=== PATIENT | female | born 1990 | race Caucasian/White ===

== ENCOUNTER 2022-07-11 20:41 | Emergency (ER) | payer OTHER, SELFPAY ==
[2022-07-11 21:44] VITALS: BP 145/70; PULSE 67; RESP 18; TEMP 36.7; O2SAT 100
[2022-07-11 22:26] VITALS: BMI 18.6
--- NOTE | 2022-07-11 22:28 | XRR_ITS ---
PROCEDURE INFORMATION: Exam: XR Right Foot Exam date and time: 07/11/2022 11:06 PM Age: 31 years old Clinical indication: Injury or trauma; Fall; Blunt trauma; Foot; Right; Additional info: Right foot injury TECHNIQUE: Imaging protocol: Radiologic exam of the right foot. Views: 3 or more views. COMPARISON: No relevant prior studies available. FINDINGS: Bones/joints: Fifth metatarsal mid to distal diaphyseal oblique mildly displaced fracture. Soft tissues: Normal. XR/XR foot RT min 3V* [id number] IMPRESSION: Fifth metatarsal mid to distal diaphyseal oblique mildly displaced fracture.
--- NOTE | 2022-07-11 23:30 | W.ED.EXTPRO ---
HPI - Extremity Problem General: Chief complaint: Extremity Injury, Lower Stated complaint: right foot injury Time Seen by Provider: 07/11/22 22:34 History of Present Illness: Patient is a 31-year-old female comes to the ED with right foot injury. Injury occurred a couple hours prior to arrival. Patient says she stepped off front porch ledge and landed on right foot weird. She now has pain bruising and swelling to the lateral aspect of right foot. Denies any other injuries, head trauma or loss of consciousness. Associated symptoms: Deny chest pain, fever(s) or rash Review of Systems Const: Denies: fever(s), chills or fatigue Eyes: Denies: change in vision or eye discomfort ENMT: Denies: throat pain, odynophagia, nasal discharge or nasal congestion Card: Denies: chest pain, palpitations, edema, swelling of feet/ankles, dyspnea on exertion or orthopnea Resp: Denies: dyspnea, productive cough or non-productive cough GI: Denies: abdominal pain, nausea, vomiting, diarrhea, constipation or hematochezia : Denies: flank pain, dysuria or hematuria Musc: Reports: extremity pain (Right foot) and extremity swelling (Right foot); Denies: neck pain or back pain Skin/Breast: Denies: rash or new lesions Neuro: Denies: headache(s), numbness in extremities or weakness in extremities PFS ED PFSH: Medical History (Updated 07/12/22 @ 02:11 by MARY Tripathi) No pertinent family history Surgical History (Updated 07/12/22 @ 02:11 by MARY Tripathi) No pertinent past surgical history Physical Exam Const: COMMON NORMALS: patient oriented x3, healthy appearing and alert HENMT: COMMON NORMALS: normocephalic HEAD & SCALP: normocephalic MOUTH: Normal oral and palatal mucosa present THROAT: posterior oropharynx normal and uvula midline Neck/C-Spine: COMMON NORMALS: supple GENERAL: Yes normal visual inspection Resp: COMMON NORMALS: normal respiratory effort, No retractions, No use of accessory muscles and clear to auscultation bilaterally AUSCULTATION: clear to auscultation bilaterally Cardio: COMMON NORMALS: regular rate, regular rhythm, S1 normal heart sound present, S2 normal heart sound present, No gallops present (Cardio), No clicks present (Cardio), No murmurs present (Cardio) and Peripheral pulses 2+ throughout RATE: regular rate RHYTHM: regular rhythm HEART SOUNDS: S1 normal heart sound present and S2 normal heart sound present PERIPHERAL PULSES: Peripheral pulses 2+ throughout GI: COMMON NORMALS: Normal to inspection, nondistended, normoactive bowel sounds present, Soft to palpation, non-tender and no masses PALPATION: Yes Soft to palpation : COMMON NORMALS: Yes no CVA tenderness BLADDER/KIDNEY EXAM: Yes no CVA tenderness Back/Pelvis: COMMON NORMALS: no CVA tenderness Extremity: NARRATIVE EXTREMITY EXAM: Right foot?ecchymosis, swelling and tenderness around fifth metatarsal. No nailbed or nail damage noted. No visible deformities. Neuro: COMMON NORMALS: patient oriented x3 SENSORIUM/ORIENTATION: Yes alert GAIT: Yes Normal gait present Skin: GENERAL SKIN EXAM: dry skin Course Vital Signs: Vital signs: Vital Signs Temperature 98.0 F 07/11/22 21:44 Pulse Rate 67 07/11/22 21:44 Respiratory Rate 18 07/11/22 21:44 Blood Pressure 145/70 07/11/22 21:44 Pulse Oximetry 100 07/11/22 21:44 Oxygen Delivery Me thod Room Air 07/11/22 21:44 MDM - Extremity (Nontraumatic) Medical Decision Making Patient is a 31-year-old female comes to the ED with right foot injury. Injury occurred a couple hours prior to arrival. Patient says she stepped off front porch ledge and landed on right foot weird. She now has pain bruising and swelling to the lateral aspect of right foot. Right foot?ecchymosis, swelling and tenderness around fifth metatarsal. No nailbed or nail damage noted. No visible deformities. X-ray of right foot showed fifth metatarsal mid to distal oblique mildly displaced fracture. I placed order with case management for patient be referred to podiatry for follow-up. She is given a dose of hydrocodone here in the ED to help with pain. Patient was put in a posterior leg splint and given crutches. She was sent home with a prescription for hydrocodone for pain and told to follow-up with podiatry at her future scheduled appointment. Return to ED precautions given. Patient understood agree with plan. Lab Data Radiology Impressions Foot X-Ray 07/11/22 22:28 IMPRESSION: Fifth metatarsal mid to distal diaphyseal oblique mildly displaced fracture. Discharge Plan Discharge Patient Disposition: Home Clinical Impression: Fracture of 5th metatarsal Qualifiers: Encounter type: initial encounter Fracture type: closed Fracture alignment: nondisplaced Laterality: right Qualified Code(s): S92.354A - Nondisplaced fracture of fifth metatarsal bone, right foot, initial encounter for closed fracture Condition: Stable Discharge Orders: Discharge ED (Routine); Ordered 07/11/22 Ordered By: Matt Solis Discharge Diet: Regular Discharge Activity: Limit activity as instructed and Use walker/crutches as instructed Patient Instructions: Fractures - Metatarsal Activity Restrictions/Additional Instructions: Follow-up with medical provider as directed. Case management should be contacted in the next several days to set up an appointment with communications manager for follow-up on fracture. Keep splint on and dry and no weightbearing until cleared by communications manager. Use crutches to help with ambulation. Take medications as prescribed. Return to the ER or your medical provider if condition worsens. Please read and understand discharge instructions. Thank you for choosing [facility] for your healthcare needs today. Please realize this is an emergency room and that we are providing you with a medical screening exam and this may not be complete and all inclusive of all the testing and or work up that you may need to determine your ailment or severity of your illness. It is very important that you follow up as instructed or that you return to the Emergency Department should you have concerns or if your condition changes or worsens in any way. Coding Level of Care Code ED Fabrication Specialist for Manav Ruiz
[2022-07-11] MEDS: HYDROcodone-acetaminophen 7.5-325 mg Tablet 1 TAB PO (23:40)
--- NOTE | 2022-07-13 08:58 | DCPLANNER ---
Addendum entered by Marianne Cartwright 07/14/22 11:28: Patient had a follow up appointment scheduled with Dr. Art at [facility] - patient did attend appointment. Original Note: reconciliation manager had message to schedule a follow up appointment for patient with podiatry. reconciliation manager sent patients information to the front office staff at podiatry. Patients information will be printed and reviewed. Clinic will call patient with appointment information.
--- NOTE | 2022-07-16 11:23 | DCPLANNER ---
TCM called patient due to no primary care physician - no answer at this time
== END 2022-07-12 00:11 | disposition home or self-care (01) ==
PROVIDERS: Emergency Provider Physician Assistant
DX: S92.354A Nondisplaced fracture of fifth metatarsal bone, right foot, initial encounter for closed fracture (principal); W17.89XA Other fall from one level to another, initial encounter
CPT/HCPCS: 29515; 73630; 99283; E0114

== ENCOUNTER 2022-07-13 16:25 | Outpatient (CLI) | payer OTHER, SELFPAY | END 2022-07-13 16:26 | disposition home or self-care (01) | LOC: SPT 16:25 | PROVIDERS: Visit Provider Podiatrist Foot & Ankle Surgery | DX: Z46.89 Encounter for fitting and adjustment of other specified devices (principal); S92.351D Displaced fracture of fifth metatarsal bone, right foot, subsequent encounter for fracture with routine healing; X58.XXXD Exposure to other specified factors, subsequent encounter | CPT/HCPCS: 97760; L4361 ==

== ENCOUNTER → 2022-07-27 15:36 | Outpatient (BNVA) | payer OTHER, SELFPAY | PROVIDERS: Visit Provider Podiatrist Foot & Ankle Surgery | DX: S92.351A Displaced fracture of fifth metatarsal bone, right foot, initial encounter for closed fracture (principal); X58.XXXA Exposure to other specified factors, initial encounter | CPT/HCPCS: 73630 ==

== ENCOUNTER → 2022-08-18 15:43 | Outpatient (BNVA) | payer OTHER, SELFPAY | PROVIDERS: Visit Provider Podiatrist Foot & Ankle Surgery | DX: S92.351A Displaced fracture of fifth metatarsal bone, right foot, initial encounter for closed fracture (principal); X58.XXXA Exposure to other specified factors, initial encounter | CPT/HCPCS: 73630; 99214 ==

== ENCOUNTER → 2022-08-31 13:13 | Outpatient (BNVA) | payer OTHER, MEDICAID, SELFPAY | PROVIDERS: Visit Provider Podiatrist Foot & Ankle Surgery | DX: S92.351G Displaced fracture of fifth metatarsal bone, right foot, subsequent encounter for fracture with delayed healing (principal); X58.XXXD Exposure to other specified factors, subsequent encounter | CPT/HCPCS: 73630; 99214 ==

== ENCOUNTER → 2022-09-17 15:37 | Outpatient (BNVA) | payer OTHER, MEDICAID, SELFPAY | PROVIDERS: Visit Provider Podiatrist Foot & Ankle Surgery | DX: S92.351A Displaced fracture of fifth metatarsal bone, right foot, initial encounter for closed fracture (principal); X50.9XXA Other and unspecified overexertion or strenuous movements or postures, initial encounter | CPT/HCPCS: 73630; 99214 ==

== ENCOUNTER → 2022-11-03 14:06 | Outpatient (BNVA) | payer MEDICAID, SELFPAY | PROVIDERS: Visit Provider Podiatrist Foot & Ankle Surgery | DX: S92.351A Displaced fracture of fifth metatarsal bone, right foot, initial encounter for closed fracture (principal); W17.89XA Other fall from one level to another, initial encounter | CPT/HCPCS: 73630; 99214 ==

== ENCOUNTER 2022-11-13 06:57 | Day surgery (SDC) | payer MEDICAID, SELFPAY ==
[2022-11-12 11:05] VITALS: BMI 18.8
--- NOTE | 2022-11-13 | XR_ITS ---
WS: [id number] Right foot, C-arm fluoroscopy views, 11/13/2022 Clinical Data: right fifth metatarsal surgery Comparison: Right foot, 11/03/2022 Findings: Dr. Art the blood a plate to the lateral aspect of the midportion of the right fifth metatarsal t o reduce the fracture Impression: Internal fixation of right fifth metatarsal fracture.
[2022-11-13 07:52] LABS: OR HCG Qualitative Urine Negative (Negative)
--- NOTE | 2022-11-13 08:11 | P.OP_ITS ---
Operative Report Date of procedure: November 13, 2022 Pre-op diagnosis: Preop Diagnosis Right fifth metatarsal fracture Post-op diagnosis: Right fifth metatarsal fracture Procedure done: Open reduction internal fixation right fifth metatarsal 30508 Implants: [place] 4-hole baby girl a straight plate with 2.5 mm locking screws x4. 4-0 Vicryl, 4-0 nylon Specimens removed/disposition: None Pathology: None Surgeon: Xavier Art D.P.M. Life Enrichment Director: Antonia Estimated blood loss: 2 5 IV fluids: 0 Urine output: 0 Complications: None Brief History: Stepped off her deck July 11, 2022 rolling her right foot.? Repeat x-rays right foot 3 views shows nonhealed oblique fracture of the distal diaphyseal metaphyseal junction of the fifth metatarsal without osseous interval healing appreciated. Patient wishing to discuss surgical intervention, has not had appreciable bony healing over the past 10 weeks with immobilization via cam boot.? I reviewed at length with the patient, the risks, potential complications, benefits, alternatives, expectations, and typical outcomes associated with the surgery. The risks and potential complications were explained in detail, including but not limited to infection, wound dehiscence or soft tissue complications, bleeding and hematoma, chronic edema, neuritis or nerve damage producing numbness or chronic pain, CRPS, failure to relieve pain or worsening pain, thick / painful / unsightly scar, limited motion / stiffness, malposition, delayed union, malunion, or nonunion, fracture, reaction to implants, anesthetic complications, venous thromboembolism, and deformity recurrence.? I discussed the notion of no regrets with the patient as it pertains to complications and outcomes. The patient seemed to understand the nature of the proposed care and required convalescence. They asked appropriate questions, answered to their satisfaction. They are aware no guarantees can be made as to a satisfactory outcome and they understand there may be other possible unforeseen complications or outcomes not listed here that will be treated accordingly if they arise. There were no written or implied guarantees given to the patient. They gave informed consent to proceed. Procedure: Under mild sedation the patient was brought to the operating room and remained on the gurney in supine position. A timeout was performed. Anesthesia was then administered by the anesthesia service. Local anesthesia was injected by myself consisting of 20 cc of 0.5% Marcaine plain in a reverse Crisostomo block fashion to the right foot followed by 20 cc of Exparel subcutaneously in a grid like fashion proximal to the reverse Crisostomo block. Well-padded pneumatic tourniquet was applied to the right high calf. The right lower extremity was scrubbed, prepped and draped utilizing normal aseptic technique. Right foot was exanguinated with an Esmarch bandage and tourniquet inflated to 250 mmHg. Attention was directed to the dorsal lateral aspect of the right fifth metatarsal head where a linear longitudinal incision was made proximally directly over the fifth metatarsal. Dissection was carried down through subcutaneous tissue to the layer of periosteum utilizing sharp and blunt technique. Care was taken to retract and preserve neurovascular and tendinous structures. All bleeders were ligated and cauterized as necessary. Periosteal incision was made and the fracture was evacuated of hematoma, flushed with saline and fixated at a dorsal lateral aspect of the fifth metatarsal utilizing a [place] 4-hole locking plate with 2.5 mm locking screws x4 with excellent bony apposition and compression noted. Excellent bone density appreciated intraoperatively. The fracture was stabilized and AP, oblique and lateral views confirmed excellent placement of hardware without violation of adjacent joints. The incision was irrigated with copious amounts of sterile saline solution and closed in a layered fashion. Subcutaneous tissue closed with 4-0 Vicryl. Skin closed with 4-0 nylon. Incision was dressed with Adaptic, sterile 4 x 4's, Kerlix and 4 inch stockinette a well-padded short leg cast was then applied to the right lower extremity with ankle joint in neutral position. The tourniquet was deflated and a prompt hyperemic response was noted to the distal digits of the right foot. Patient tolerated the procedure and anesthesia well and was transferred to the PACU with vital signs stable and vascular status intact. Following a period of postoperative monitoring she will be discharged home. He is to be nonweightbearing to the right foot. Is to elevate her right foot while resting. Was given at home care instructions and scheduled follow-up as well as my cell phone number to contact with any postoperative questions or concerns.
--- NOTE | 2022-11-13 08:11 | W.PM.OPSUD ---
Surgery/Procedure H&P Update DATE OF PROCEDURE: November 13, 2022 DATE H&P PERFORMED: 11/03/22 H&P UPDATE INFORMATION: I have reviewed H&P completed within last 30 days, I have examined patient prior to procedure, No changes to prior documentation and H&P is in [facility] EMR on date indicated CHANGES TO PREVIOUS DOCUMENTATION: none PREOP DIAGNOSIS: Right fifth metatarsal fracture PLANNED PROCEDURE: Operation Date: 11/13/22 09:10 Proposed Procedures p ?Open reduction internal fixation right fifth metatarsal 55318,S92.351A(Right) - Xavier Art DPM
[2022-11-13] MEDS: sodium chloride 0.9% 1,000 ML 30 ML IV (08:14)
[2022-11-13] MEDS: CELEcoxib 200 mg Capsule 400 MG PO (08:16)
--- NOTE | 2022-11-13 09:05 | ANES.PREANE2 ---
Pre-Anesthetic Assessment Height/Weight: Height 1.63 m Weight 49.895 kg O2 Del Method Room Air 11/13/22 07:44 Preop Diagnosis: Right fifth metatarsal fracture Operation Date: 11/13/22 09:10 Proposed Procedures p ?Open reduction internal fixation right fifth metatarsal 88649,S92.351A(Right) - Xavier Art DPM Familial anesthetic complications: none Was Beta Guillermo taken within 24 hours: N/A Was Clonidine taken within 24 hours: N/A Last intake: Intake Last Liquid Date 11/12/22 Last Liquid Time 23:55 Last Solid Date 11/12/22 Last Solid Time 23:55 Social No alcohol and No tobacco (h/o smoking) Exam alert, oriented x 3, clear to auscultation bilaterally and regular rate & rhythm Airway Submandibular: within normal limits Cervical ROM: within normal limits Mallampati: Class I Dentition: chipped (multiple caries) Pulmonary anomalous pulmonary anatomy s/p repair (age 20) Anesthetic Plan ASA status: 2 Anesthesia: General Medications/Allergies Home Medications Medication Instructions Recorded Confirmed Last Taken Type ibuprofen 800 mg tablet 800 mg PO TID 2 weeks #42 tabs 08/19/22 11/12/22 11/12/22 Rx Allergies Allergy/AdvReac Type Severity Reaction Status Date / Time codeine Allergy Intermediate ALGY-Difficulty Verified 11/12/22 11:05 Breathing Penicillins Allergy Intermediate ALGY-Hives Verified 11/12/22 11:05 Current Medications Generic Name Dose Route Start Last Admin Trade Name Freq PRN Reason Stop Dose Admin Sodium Chloride 1,000 mls @ 30 mls/hr 11/13/22 07:15 11/13/22 08:14 Sodium Chloride 0.9% IV 11/14/22 07:14 30 mls/hr .Q24H BURKE Administration PFSH Anesthesia Medical History No pertinent family history Surgical History No pertinent past surgical history Female Reproductive History Date of last menstrual period: 10/26/22 Data Anesthesia Cardiac Studies: No Data to Display
[2022-11-13] MEDS: ceFAZolin 2,000 MG in sodium chloride 0.9% (plus) 50 ML 100 MG IV (09:33)
[2022-11-13] MEDS: BUPivacaine 0.5% INJ 30 mL 20 ML INJECTION (09:50)
[2022-11-13] MEDS: BUPivacaine liposome 13.3 mg/mL SDV 10 mL 133 MG INFILTRATI (09:54)
[2022-11-13 10:30] VITALS: BP 82/42; PULSE 57; RESP 16; TEMP 36.5; O2SAT 100
[2022-11-13 10:35] VITALS: BP 91/48; PULSE 60; RESP 14; O2SAT 100
[2022-11-13 10:40] VITALS: BP 97/55; PULSE 67; RESP 17; O2SAT 100
[2022-11-13 10:44] VITALS: BP 100/66; PULSE 58; RESP 18; O2SAT 100
[2022-11-13 10:53] VITALS: BP 105/71; PULSE 57; RESP 16; TEMP 36.6; O2SAT 99
[2022-11-13 11:18] VITALS: BP 115/74; PULSE 58; RESP 16; TEMP 36.7; O2SAT 98
--- NOTE | 2022-11-13 14:05 | ANE.PACU2 ---
Inpatient post-anesthesia follow up: Airway intact: Yes Vital signs: Temperature 98.0 F Pulse Rate 58 Respiratory Rate 16 Blood Pressure 115/74 Pulse Oximetry 98 Oxygen Delivery Me thod Room Air Oxygen Flow Rate 8 Fraction of Inspir ed Oxygen Hydration adequate: Yes Nausea and vomiting: No Pain level: 2 Mental status: Baseline
== END 2022-11-13 11:30 | disposition home or self-care (01) ==
PROVIDERS: Visit Provider Podiatrist Foot & Ankle Surgery
PROC: (CPT 28485; principal; 2022-11-13 09:10)
DX: S92.351A Displaced fracture of fifth metatarsal bone, right foot, initial encounter for closed fracture (principal); W17.89XA Other fall from one level to another, initial encounter
CPT/HCPCS: 28485; 73620; 76000; 81025; 84703; C1713; C9290; J0690; J2250; J2704; J3010; J3490; J7030

== ENCOUNTER → 2022-12-03 15:32 | Outpatient (BNVA) | payer MEDICAID, SELFPAY | PROVIDERS: Visit Provider Podiatrist Foot & Ankle Surgery | DX: S92.351A Displaced fracture of fifth metatarsal bone, right foot, initial encounter for closed fracture (principal); Z98.890 Other specified postprocedural states; X58.XXXA Exposure to other specified factors, initial encounter | CPT/HCPCS: 73630 ==

== ENCOUNTER 2022-12-03 16:05 | Outpatient (CLI) | payer MEDICAID, SELFPAY | END 2022-12-03 16:06 | disposition home or self-care (01) | LOC: SPT 16:07 | PROVIDERS: Visit Provider Podiatrist Foot & Ankle Surgery | DX: Z47.89 Encounter for other orthopedic aftercare (principal); S92.351D Displaced fracture of fifth metatarsal bone, right foot, subsequent encounter for fracture with routine healing; X58.XXXD Exposure to other specified factors, subsequent encounter | CPT/HCPCS: 97760; L4361 ==